=== PATIENT | male | born 1970 | race Caucasian/White ===

== ENCOUNTER 2022-04-30 05:55 | Day surgery (SDC) | payer OTHER ==
[~2022-04-30] VITALS: Ht 177.8 cm; Wt 86.2 kg
[2022-04-30] MEDS ORDERED: MIDAZOLAM 5 MG/5 ML VIAL ONE (07:20)
[2022-04-30] MEDS ORDERED: fentaNYL citrate 0.05 MG/ML VIAL ONE (07:20)
[2022-04-30] MEDS ORDERED: LIDOCAINE 2% 100 MG/5 ML UJET TP ONE (07:21)
[2022-04-30] MEDS ORDERED: fentaNYL citrate 0.05 MG/ML VIAL IVP ONE (10:45)
[2022-04-30] MEDS ORDERED: MIDAZOLAM 2 MG/2 ML VIAL IVP ONE (10:45)
== END 2022-04-30 10:55 | disposition home or self-care (01) ==
LOC: MOR 05:55 → MMU 05:56 → MOR 10:55
PROVIDERS: ATTEND Internal Medicine Gastroenterology
DX: Z12.11 Encounter for screening for malignant neoplasm of colon (principal); K63.5 Polyp of colon; K22.2 Esophageal obstruction; R14.0 Abdominal distension (gaseous); K21.00 Gastro-esophageal reflux disease with esophagitis, without bleeding; K31.7 Polyp of stomach and duodenum; I10 Essential (primary) hypertension; F41.9 Anxiety disorder, unspecified; G47.00 Insomnia, unspecified; E11.9 Type 2 diabetes mellitus without complications; E78.00 Pure hypercholesterolemia, unspecified; Z79.84 Long term (current) use of oral hypoglycemic drugs; Z79.899 Other long term (current) drug therapy; Z20.822 Contact with and (suspected) exposure to COVID-19
CPT/HCPCS: 36415; 43239; 45385; 86677; 87426; J2250; J3010; J7030